=== PATIENT | female | born 1965 | race Caucasian/White ===

== ENCOUNTER 2023-10-14 23:58 | Inpatient (IN) | payer OTHER ==
[~2023-10-14] VITALS: Ht 165.1 cm; Wt 95.3 kg
[2023-10-15] MEDS ORDERED: IV NORMAL SALINE 1000 ML BAG IV ONE (00:30)
[2023-10-15] MEDS ORDERED: MEROPENEM 1 G in IV NORMAL SALINE 100 ML IV ONE (00:30)
[2023-10-15] MEDS ORDERED: ONDANSETRON 4 MG/2 ML VIAL IV ONE (00:30)
[2023-10-15] MEDS ORDERED: MEROPENEM 1GM/NS 100ML IVPB **ER PYXIS ONLY IV ONE (00:39)
[2023-10-15 00:42] LABS: BASOPHILS # (AUTO) 0.1 K/UL (0.0-0.2); BASOPHILS % (AUTO) 0.5 % (0.0-2.0); EOSINOPHILS # (AUTO) 0.1 K/uL (0.0-0.7); EOSINOPHILS % (AUTO) 0.2 % (0.0-7.0); HEMATOCRIT 41.2 % (31.2-41.9); LYMPHOCYTES # (AUTO) 1.3 K/uL (0.8-4.8); LYMPHOCYTES % (AUTO) 5.6 % (20.5-51.5); MEAN CORPUSCULAR HEMOGLOBIN 30.3 uug (24.7-32.8); MEAN CORPUSCULAR HGB CONC 34 g/dL (32.3-35.6); MONOCYTES # (AUTO) 1.1 K/uL (0.1-1.30); MONOCYTES % (AUTO) 4.9 % (0.0-11.0); NEUTROPHILS # (AUTO) 20.2 K/uL (1.8-8.9); NEUTROPHILS % (AUTO) 88.8 % (38.5-71.5); PLATELET COUNT (AUTO) 304 K/uL (179-408); RED BLOOD CELL COUNT(AUTO) 4.62 MIL/uL (3.63-4.92); WHITE BLOOD COUNT (AUTO) 22.8 K/uL (3.8-11.8)
[2023-10-15] MEDS ORDERED: HYDROCODONE/APAP 5-325MG TABLET PO ONE (00:45)
[2023-10-15 00:49] LABS: *BILIRUBIN,URIN NEGATIVE (NEGATIVE); *CLARITY,URINE CLEAR (CLEAR); *COLOR,URINE YELLOW (YELLOW); *KETONES,URINE TRACE (NEGATIVE); *PROTEIN,URINE 1+ (NEGATIVE); LEUKOCYTE ESTERASE ,URINE TRACE (NEGATIVE); NITRITE, URINE NEGATIVE (NEGATIVE); PH,URINE 7.5 (5.0-8.0); UGLUCOSE TRACE (NEGATIVE)
[2023-10-15] MEDS ORDERED: ATOR40TA PO (01:00)
[2023-10-15] MEDS ORDERED: ZOLP5TAB8 PO (01:00)
[2023-10-15] MEDS ORDERED: ASPI81TA31 PO (01:00)
[2023-10-15] MEDS ORDERED: ATEN50TA PO (01:00)
[2023-10-15] MEDS ORDERED: CYCL5TAB PO (01:00)
[2023-10-15] MEDS ORDERED: OMEP20TA5 PO (01:00)
[2023-10-15] MEDS ORDERED: CALC-896 PO (01:00)
[2023-10-15] MEDS ORDERED: TELM80TA2 PO (01:00)
[2023-10-15] MEDS ORDERED: ANAS1TAB50 PO (01:00)
[2023-10-15] MEDS ORDERED: GABA-532 PO (01:00)
[2023-10-15] MEDS ORDERED: TRAM50TA2 PO (01:00)
[2023-10-15] MEDS ORDERED: TIZA4TAB5 PO (01:00)
[2023-10-15] MEDS ORDERED: DICL75TA5 PO (01:00)
[2023-10-15] MEDS ORDERED: MULT-225 PO (01:00)
[2023-10-15] MEDS ORDERED: DIAZ10TA4 PO (01:00)
[2023-10-15 01:05] LABS: *BLOOD, URINE TRACE (NEGATIVE)
[2023-10-15 01:05] LABS: DIFFERENTIAL COMMENT 1
[2023-10-15 01:08] LABS: CALCIUM 8.9 mg/dL (8.5-10.1); CARBON DIOXIDE 26 mmol/L (21-32); CHLORIDE 104 mmol/L (98-107); CREATININE 1.1 mg/dL (0.6-1.3); GLUCOSE 160 mg/dL (74-106); POTASSIUM 3.7 mmol/L (3.5-5.1); SODIUM SERUM 138 mmol/L (136-145); UREA NITROGEN, BLOOD 14 mg/dL (7-18)
[2023-10-15 01:12] LABS: BACTERIA,URINE FEW /HPF (NONE SEEN); YEAST,URINE FEW /HPF (NONE SEEN)
[2023-10-15 01:17] LABS: ALANINE AMINOTRANSFERASE 42 U/L (14-59); ALBUMIN 3.5 g/dL (3.4-5.0); ALKALINE PHOSPHATASE 85 U/L (50-136); ASPARTATE AMINOTRANSFERASE 21 U/L (15-37); BILIRUBIN,DIRECT 0.2 mg/dL (0.0-0.2); BILIRUBIN,TOTAL 0.8 mg/dL (0.2-1.0); TOTAL PROTEIN, SERUM 7.2 g/dL (6.4-8.2)
[2023-10-15 01:34] LABS: LACTIC ACID 2.2 mmol/L (0.4-2.0)
[2023-10-15] MEDS ORDERED: HYDROCODONE/APAP 5-325MG TABLET PO PRN (02:00)
[2023-10-15] MEDS ORDERED: MAGNESIUM HYDROXIDE 30 ML LIQUID UDC PO PRN (02:00)
[2023-10-15] MEDS ORDERED: ACETAMINOPHEN 325 MG TABLET PO PRN (02:00)
[2023-10-15] MEDS ORDERED: REMEDY ESSENTIAL ZINC PASTE 113 GM TP PRN (02:00)
[2023-10-15] MEDS: ENOXAPARIN SODIUM 40 MG/0.4 ML DISP.SYRIN SQ SCH ×2 (04:44→20:54)
[2023-10-15] MEDS: IV NS 1000 ML 1,000 ML IV PRN ×2 (04:50→21:02)
[2023-10-15 06:01] LABS: BASOPHILS # (AUTO) 0.1 K/UL (0.0-0.2); BASOPHILS % (AUTO) 0.3 % (0.0-2.0); EOSINOPHILS % (AUTO) 0.1 % (0.0-7.0); HEMATOCRIT 35.4 % (31.2-41.9); HEMOGLOBIN 11.8 g/dL (10.9-14.3); LYMPHOCYTES # (AUTO) 1.7 K/uL (0.8-4.8); LYMPHOCYTES % (AUTO) 8.5 % (20.5-51.5); MEAN CORPUSCULAR HEMOGLOBIN 30.2 uug (24.7-32.8); MEAN CORPUSCULAR HGB CONC 33 g/dL (32.3-35.6); MEAN CORPUSCULAR VOLUME 90.8 fL (75.5-95.3); MONOCYTES # (AUTO) 1.1 K/uL (0.1-1.30); MONOCYTES % (AUTO) 5.6 % (0.0-11.0); NEUTROPHILS # (AUTO) 17.5 K/uL (1.8-8.9); NEUTROPHILS % (AUTO) 85.5 % (38.5-71.5); PLATELET COUNT (AUTO) 242 K/uL (179-408); RED CELL DISTRIBUTION WIDTH 13.2 % (12.3-17.7); WHITE BLOOD COUNT (AUTO) 20.5 K/uL (3.8-11.8)
[2023-10-15 06:03] LABS: DIFFERENTIAL COMMENT 1
[2023-10-15] MEDS: PANTOPRAZOLE SODIUM 40 MG TABLET.DR PO SCH (06:06)
[2023-10-15 06:16] LABS: ALBUMIN 2.8 g/dL (3.4-5.0); BILIRUBIN,TOTAL 0.5 mg/dL (0.2-1.0); CALCIUM 7.7 mg/dL (8.5-10.1); CREATININE 0.9 mg/dL (0.6-1.3); POTASSIUM 3.5 mmol/L (3.5-5.1)
[2023-10-15] MEDS: CEFTRIAXONE 1 G in IV DEXTROSE 5% 50 ML IV SCH (10:01)
[2023-10-15 12:04] VITALS: BP 157/73; TEMP 98.2; O2SAT 100
[2023-10-15] MEDS: HYDROCODONE/APAP 10-325 MG TABLET PO PRN (13:39)
[2023-10-15] MEDS: HYDROMORPHONE 1 MG/1 ML DISP.SYRIN IV PRN (16:01)
[2023-10-15] MEDS: ONDANSETRON 4 MG/2 ML VIAL IV PRN (16:01)
[2023-10-15 16:10] VITALS: BP 159/88; TEMP 98.3; O2SAT 98
[2023-10-15 20:00] VITALS: BP 152/74; TEMP 97.9; O2SAT 97
[2023-10-16] MEDS: HYDROMORPHONE 1 MG/1 ML DISP.SYRIN IV PRN ×3 (02:23→17:03)
[2023-10-16 04:00] VITALS: BP 165/76; TEMP 98.1; O2SAT 98
[2023-10-16] MEDS ORDERED: FLUCONAZOLE 200 MG/NS 100ML IV 200 MG in PREMIXED 1 EACH IV ONE ×2 (06:05→08:00)
[2023-10-16] MEDS: PANTOPRAZOLE SODIUM 40 MG TABLET.DR PO SCH (06:17)
[2023-10-16] MEDS ORDERED: SWABABLE VALVE TRANSFER SET EA MC ONE (09:02)
[2023-10-16] MEDS ORDERED: IOHEXOL 300MG/ML 100 ML INFUS..BTL ONE (09:02)
[2023-10-16] MEDS ORDERED: IV NORMAL SALINE 250 ML IV ONE (09:02)
[2023-10-16] MEDS: CEFTRIAXONE 1 G in IV DEXTROSE 5% 50 ML IV SCH (09:54)
[2023-10-16] MEDS: ONDANSETRON 4 MG/2 ML VIAL IV PRN ×2 (10:13→17:03)
[2023-10-16] MEDS ORDERED: ATORVASTATIN 40 MG TABLET PO SCH (10:45)
[2023-10-16] MEDS ORDERED: ZOLPIDEM 5 MG TABLET PO PRN (10:45)
[2023-10-16] MEDS ORDERED: ATENOLOL 50 MG TABLET PO SCH (10:45)
[2023-10-16] MEDS ORDERED: GABAPENTIN 100 MG CAPSULE PO PRN (10:45)
[2023-10-16] MEDS ORDERED: TRAMADOL HCL 50 MG TABLET PO PRN (10:45)
[2023-10-16] MEDS ORDERED: DIAZEPAM 10 MG TABLET PO PRN (10:45)
[2023-10-16] MEDS: ASPIRIN 81 MG TAB.CHEW PO SCH ×2 (11:03→13:14)
[2023-10-16] MEDS: CALCIUM CITRA-VITAMIN D 315 MG-250 UNITS TABLET PO SCH ×2 (11:04→13:15)
[2023-10-16] MEDS ORDERED: GABAPENTIN 300 MG CAPSULE PO PRN (11:15)
[2023-10-16 11:30] VITALS: BP 165/77; TEMP 98.2; O2SAT 98
[2023-10-16] MEDS ORDERED: VALSARTAN 80 MG TABLET PO SCH (11:32)
[2023-10-16] MEDS: ATENOLOL 25 MG TABLET PO SCH (13:14)
[2023-10-16] MEDS: ANASTROZOLE 1 MG TABLET PO SCH (13:15)
[2023-10-16] MEDS ORDERED: OLMESARTAN 40 MG PO SCH ×2 (14:30→14:41)
[2023-10-16] MEDS ORDERED: OLME40TA12 PO (14:36)
[2023-10-16 15:23] VITALS: BP 126/81; TEMP 98.2; O2SAT 99
[2023-10-16] MEDS: OLMESARTAN 40 MG PO SCH (17:02)
[2023-10-16] MEDS: DICLOFENAC 75 MG TABLET.DR PO SCH (17:02)
[2023-10-16 17:17] LABS: BASOPHILS # (AUTO) 0.2 K/UL (0.0-0.2); BASOPHILS % (AUTO) 2.4 % (0.0-2.0); EOSINOPHILS # (AUTO) 0.1 K/uL (0.0-0.7); EOSINOPHILS % (AUTO) 1.3 % (0.0-7.0); HEMATOCRIT 39.3 % (31.2-41.9); HEMOGLOBIN 13.2 g/dL (10.9-14.3); LYMPHOCYTES # (AUTO) 1.5 K/uL (0.8-4.8); LYMPHOCYTES % (AUTO) 16.9 % (20.5-51.5); MEAN CORPUSCULAR HEMOGLOBIN 29.9 uug (24.7-32.8); MEAN CORPUSCULAR HGB CONC 34 g/dL (32.3-35.6); MONOCYTES # (AUTO) 0.7 K/uL (0.1-1.30); MONOCYTES % (AUTO) 7.4 % (0.0-11.0); NEUTROPHILS # (AUTO) 6.6 K/uL (1.8-8.9); PLATELET COUNT (AUTO) 288 K/uL (179-408); RED BLOOD CELL COUNT(AUTO) 4.41 MIL/uL (3.63-4.92); WHITE BLOOD COUNT (AUTO) 9.1 K/uL (3.8-11.8)
[2023-10-16 17:25] LABS: CALCIUM 9.6 mg/dL (8.5-10.1); CREATININE 0.7 mg/dL (0.6-1.3); POTASSIUM 3.7 mmol/L (3.5-5.1)
[2023-10-16 17:26] LABS: DIFFERENTIAL COMMENT 1
[2023-10-16] MEDS: IV NS 1000 ML 1,000 ML IV PRN (17:50)
[2023-10-16 20:00] VITALS: BP 169/92; TEMP 97.3; O2SAT 96
[2023-10-16] MEDS: ATORVASTATIN 20 MG TABLET PO SCH (20:38)
[2023-10-16] MEDS: ENOXAPARIN SODIUM 40 MG/0.4 ML DISP.SYRIN SQ SCH (20:39)
[2023-10-17] MEDS: HYDROMORPHONE 1 MG/1 ML DISP.SYRIN IV PRN ×3 (01:42→11:09)
[2023-10-17 04:00] VITALS: BP 171/85; TEMP 97.6; O2SAT 96
[2023-10-17] MEDS: IV NS 1000 ML 1,000 ML IV PRN (06:11)
[2023-10-17] MEDS: PANTOPRAZOLE SODIUM 40 MG TABLET.DR PO SCH (06:32)
[2023-10-17] MEDS ORDERED: BUPIVACAINE HCL/DEX-WATER/PF 0.75%, 2 ML AMPUL ONE (07:29)
[2023-10-17] MEDS ORDERED: TELMISARTAN 80 MG PO SCH (09:00)
[2023-10-17] MEDS ORDERED: Medication Not On Formulary EA (Multivitamins (Multiple Vitamin) 1 EACH) PO SCH (09:00)
[2023-10-17] MEDS ORDERED: Medication Not On Formulary EA (Omeprazole 20 MG) PO SCH (09:00)
[2023-10-17] MEDS: DICLOFENAC 75 MG TABLET.DR PO SCH ×2 (09:05→16:37)
[2023-10-17] MEDS: MULTIVITAMINS,THERAPEUTIC TABLET PO SCH (09:05)
[2023-10-17] MEDS: CALCIUM CITRA-VITAMIN D 315 MG-250 UNITS TABLET PO SCH (09:06)
[2023-10-17] MEDS: ASPIRIN 81 MG TAB.CHEW PO SCH (09:06)
[2023-10-17 09:07] LABS: *IMMUNOGLOBULIN G, SERUM 1045 mg/dL (586-1602); CANCER ANTIGEN 15-3 41.8 U/mL (0.0-25.0); IMMUNOGLOBULIN A, SERUM 138 mg/dL (87-352); IMMUNOGLOBULIN M, SERUM 179 mg/dL (26-217)
[2023-10-17] MEDS: OLMESARTAN 40 MG PO SCH (09:07)
[2023-10-17] MEDS: ATENOLOL 25 MG TABLET PO SCH (09:07)
[2023-10-17] MEDS: ANASTROZOLE 1 MG TABLET PO SCH (09:08)
[2023-10-17 10:16] LABS: BASOPHILS # (AUTO) 0.1 K/UL (0.0-0.2); BASOPHILS % (AUTO) 0.8 % (0.0-2.0); EOSINOPHILS # (AUTO) 0.2 K/uL (0.0-0.7); EOSINOPHILS % (AUTO) 2.8 % (0.0-7.0); HEMOGLOBIN 13.2 g/dL (10.9-14.3); LYMPHOCYTES # (AUTO) 1.8 K/uL (0.8-4.8); LYMPHOCYTES % (AUTO) 25.3 % (20.5-51.5); MEAN CORPUSCULAR HEMOGLOBIN 30.4 uug (24.7-32.8); MEAN CORPUSCULAR HGB CONC 34 g/dL (32.3-35.6); MEAN CORPUSCULAR VOLUME 89.6 fL (75.5-95.3); MONOCYTES # (AUTO) 0.5 K/uL (0.1-1.30); MONOCYTES % (AUTO) 7.8 % (0.0-11.0); NEUTROPHILS # (AUTO) 4.4 K/uL (1.8-8.9); NEUTROPHILS % (AUTO) 63.3 % (38.5-71.5); PLATELET COUNT (AUTO) 245 K/uL (179-408); RED BLOOD CELL COUNT(AUTO) 4.35 MIL/uL (3.63-4.92); RED CELL DISTRIBUTION WIDTH 12.9 % (12.3-17.7)
[2023-10-17] MEDS: CEFTRIAXONE 1 G in IV DEXTROSE 5% 50 ML IV SCH (10:45)
[2023-10-17] MEDS ORDERED: hydrALAZINE HCL 20 MG/1 ML VIAL IV PRN (11:00)
[2023-10-17 11:01] LABS: CALCIUM 8.7 mg/dL (8.5-10.1); CREATININE 0.9 mg/dL (0.6-1.3); POTASSIUM 3.3 mmol/L (3.5-5.1)
[2023-10-17] MEDS: ONDANSETRON 4 MG/2 ML VIAL IV PRN (11:08)
[2023-10-17 11:22] VITALS: BP 167/71; TEMP 98.3; O2SAT 98
[2023-10-17 12:06] LABS: A/G RATIO 0.9 (0.7-1.7); ALBUMIN 3.2 g/dL (2.9-4.4); ALPHA-1-GLOBULIN 0.3 g/dL (0.0-0.4); ALPHA-2-GLOBULIN 0.9 g/dL (0.4-1.0); GAMMA GLOBULIN 1.2 g/dL (0.4-1.8); GLOBULIN, TOTAL 3.4 g/dL (2.2-3.9); M-SPIKE Not Observed g/dL (Not Observed)
[2023-10-17 16:04] VITALS: BP 166/78; TEMP 98.6; O2SAT 97
[2023-10-17] MEDS ORDERED: POTASSIUM CHLORIDE 20 MEQ TAB.PRT.SR PO ONE (17:00)
[2023-10-17] MEDS ORDERED: HYDROMORPHONE HCL 2 MG TABLET PO PRN (17:30)
[2023-10-17] MEDS ORDERED: ONDANSETRON HCL 4 MG TABLET PO PRN (19:00)
[2023-10-17 20:35] VITALS: BP 188/74; TEMP 98.5; O2SAT 97
[2023-10-17] MEDS: ATORVASTATIN 20 MG TABLET PO SCH (21:16)
[2023-10-17] MEDS: ENOXAPARIN SODIUM 40 MG/0.4 ML DISP.SYRIN SQ SCH (21:17)
[2023-10-17] MEDS: HYDROCODONE/APAP 10-325 MG TABLET PO PRN (22:11)
[2023-10-18 05:40] VITALS: BP 178/98; TEMP 98.4; O2SAT 98
[2023-10-18] MEDS: PANTOPRAZOLE SODIUM 40 MG TABLET.DR PO SCH (06:10)
[2023-10-18 08:00] VITALS: BP 128/83; TEMP 98.4; O2SAT 95
[2023-10-18] MEDS ORDERED: ATENOLOL 25 MG TABLET PO SCH (09:45)
[2023-10-18] MEDS: ASPIRIN 81 MG TAB.CHEW PO SCH (09:48)
[2023-10-18] MEDS: ANASTROZOLE 1 MG TABLET PO SCH (09:48)
[2023-10-18] MEDS: DICLOFENAC 75 MG TABLET.DR PO SCH ×2 (09:49→17:43)
[2023-10-18] MEDS: OLMESARTAN 40 MG PO SCH (09:49)
[2023-10-18] MEDS: CALCIUM CITRA-VITAMIN D 315 MG-250 UNITS TABLET PO SCH (09:49)
[2023-10-18] MEDS: MULTIVITAMINS,THERAPEUTIC TABLET PO SCH (09:49)
[2023-10-18] MEDS: HYDROCODONE/APAP 10-325 MG TABLET PO PRN ×3 (09:50→14:13)
[2023-10-18] MEDS: CEFTRIAXONE 1 G in IV DEXTROSE 5% 50 ML IV SCH (10:00)
[2023-10-18 15:46] VITALS: BP 146/72; TEMP 98.4; O2SAT 97
[2023-10-18] MEDS ORDERED: AMOXICILLIN-CLAVUL 875-125MG TABLET PO SCH (18:00)
[2023-10-18] MEDS ORDERED: AMOX-430 PO (18:35)
[2023-10-18] MEDS ORDERED: RIVA20TA PO (18:35)
[2023-10-18 20:25] VITALS: BP 174/96; TEMP 98.2; O2SAT 99
== END 2023-10-18 20:30 | disposition home or self-care (01) | DRG 690 ==
LOC: ER 10-15 00:10 → TELE3 10-15 01:44 → MEDSURG3 10-15 09:20 → TELE3 10-17 13:37
PROVIDERS: ADMIT Nurse Practitioner Family; ATTEND Internal Medicine
PROC: 05HD33Z Insertion of Infusion Device into Right Cephalic Vein, Percutaneous Approach (ICD-10-PCS; principal; 2023-10-15)
DX: N10 Acute pyelonephritis (principal); C79.51 Secondary malignant neoplasm of bone; D68.61 Antiphospholipid syndrome; D68.69 Other thrombophilia; I82.611 Acute embolism and thrombosis of superficial veins of right upper extremity; M06.9 Rheumatoid arthritis, unspecified; M32.9 Systemic lupus erythematosus, unspecified; Z85.3 Personal history of malignant neoplasm of breast; N20.0 Calculus of kidney; K42.9 Umbilical hernia without obstruction or gangrene; K40.91 Unilateral inguinal hernia, without obstruction or gangrene, recurrent; Z87.891 Personal history of nicotine dependence; Z92.21 Personal history of antineoplastic chemotherapy; E66.9 Obesity, unspecified; Z68.34 Body mass index [BMI] 34.0-34.9, adult; Z90.12 Acquired absence of left breast and nipple; K76.9 Liver disease, unspecified; Z98.1 Arthrodesis status; Z90.710 Acquired absence of both cervix and uterus; E78.5 Hyperlipidemia, unspecified; G89.29 Other chronic pain; G50.0 Trigeminal neuralgia; M51.36 Other intervertebral disc degeneration, lumbar region; M79.7 Fibromyalgia; I10 Essential (primary) hypertension; K76.0 Fatty (change of) liver, not elsewhere classified; I70.0 Atherosclerosis of aorta; N30.10 Interstitial cystitis (chronic) without hematuria
CPT/HCPCS: 36415; 70450; 71045; 71260; 76641-TC; 76705; 78306; 82378; 82784; 83605; 83735; 84155; 84165; 84484; 85025; 85730; 86300; 86334; 87040; 93005; A4606; A4663; A9503; G0378; J0360; J0696; J1170; J1450; J1650; J2185; J2405; J3490; J7040; J8499; Q0162; Q9967